=== PATIENT | female | born 1950 | race Caucasian/White ===

== ENCOUNTER 2019-07-06 07:05 | Day surgery (SDC) | payer MEDICARE, BC ==
[~2019-07-06 07:05] MED LIST: Lactated Ringers 1,000 ML IV SCH; Sodium Chloride 0.9% 10 ML Syringe FLUSH PRN
[2019-07-06] MEDS ORDERED: fentaNYL 100 MCG/2 ML SDV ONE (08:06)
[2019-07-06] MEDS ORDERED: Propofol 200 MG/20 ML SDV ONE ×2 (08:06→09:25)
--- NOTE | 2019-07-06 13:49 | OR ---
PRE-OPERATIVE DIAGNOSES: 1. History of colon polyps. Last colonoscopy 05/2014 revealed 2 adenomas. 2. Positive family history of advanced colon polyps requiring resection. 3. Chronic constipation. POST-OPERATIVE DIAGNOSES: 1. 2 mm polyp at 75 cm, removed with cold forceps. 2. Moderate left-sided diverticulosis. 3. Moderate hemorrhoids. 4. Mild melanosis coli. PROCEDURE: Colonoscopy with polypectomy x1 using cold forceps. ANESTHESIA: Monitored anesthesia care. BOWEL PREP: Good. DESCRIPTION OF PROCEDURE: Lisbet is a 68-year-old female who was brought to the endoscopy suite after discussing risks and benefits of the procedure. Informed consent was obtained for conscious sedation and colonoscopy with or without biopsy and/or polypectomy. We also discussed possibility of missed lesions. Pre-procedure exam was unremarkable. IV, oxygen, and monitors were placed. The patient was placed in the left lateral decubitus position. Sedation was administered and a digital rectal exam was performed and remarkable for some moderate hemorrhoids, not acutely inflamed. Colonoscope was passed into the rectum and slowly advanced all the way to the cecum. Cecum was viewed and photographed. The colonoscope was slowly withdrawn and the mucosa was closed observed in a direct circumferential manner. The ascending colon was unremarkable. The transverse colon revealed 2 mm polyp at 75 cm, removed with cold forceps. The descending and sigmoid colon revealed some moderate diverticulosis. Retroflexion was performed. Rectal mucosa was remarkable for some moderate hemorrhoids. Rectosigmoid area did also reveal some mild melanosis coli. Scope was removed. The patient tolerated the procedure well. The patient was monitored until that baseline status. Discharge instructions were reviewed and the patient was discharged in good condition. COMPLICATIONS: None. TOTAL TIME: 23 minutes. ESTIMATED BLOOD LOSS: Less than 1 mL. RECOMMENDATIONS/FOLLOW-UP: We will await results of path report to determine ideal followup interval. I would like to kindly thank Dr. Radha Scanlon for this referral. DMB: 07/06/2019 12:56:41 MODL: 07/06/2019 13:42:14 /[id number]
== END 2019-07-06 11:00 | disposition home or self-care (01) ==
LOC: VM.SDS 07:05
PROVIDERS: ATTEND Family Medicine
DX: D12.3 Benign neoplasm of transverse colon (principal); K57.30 Diverticulosis of large intestine without perforation or abscess without bleeding; K63.89 Other specified diseases of intestine; K64.9 Unspecified hemorrhoids; I10 Essential (primary) hypertension; E78.5 Hyperlipidemia, unspecified; E78.00 Pure hypercholesterolemia, unspecified; E03.9 Hypothyroidism, unspecified; E66.9 Obesity, unspecified; Z68.33 Body mass index [BMI] 33.0-33.9, adult; Z79.899 Other long term (current) drug therapy; Z86.010 Personal history of colon polyps; Z83.71 Family history of colonic polyps
CPT/HCPCS: 00811; 88305; J2704; J3010; J7120

== ENCOUNTER 2025-02-22 08:46 | Day surgery (SDC) | payer MEDICARE, BC ==
[2025-02-22] MEDS: Lactated Ringers 1,000 ML IV SCH (09:02)
[2025-02-22] MEDS ORDERED: Midazolam 1 MG/ML 2 ML SDV ONE (10:14)
[2025-02-22] MEDS ORDERED: Propofol 200 MG/20 ML SDV ONE (10:14)
[2025-02-22] MEDS ORDERED: fentaNYL 100 MCG/2 ML SDV ONE (10:25)
== END 2025-02-22 11:40 | disposition home or self-care (01) ==
LOC: VM.SDS 08:46
PROVIDERS: ATTEND Family Medicine
DX: D12.2 Benign neoplasm of ascending colon (principal); D12.3 Benign neoplasm of transverse colon; D12.5 Benign neoplasm of sigmoid colon; K57.30 Diverticulosis of large intestine without perforation or abscess without bleeding; K59.09 Other constipation; E78.00 Pure hypercholesterolemia, unspecified; E66.9 Obesity, unspecified; I10 Essential (primary) hypertension; E03.9 Hypothyroidism, unspecified; Z79.890 Hormone replacement therapy; Z79.899 Other long term (current) drug therapy; Z86.16 Personal history of COVID-19; Z68.25 Body mass index [BMI] 25.0-25.9, adult; Z86.0101 Personal history of adenomatous and serrated colon polyps
CPT/HCPCS: 00811; 88305; 99100; J2250; J2704; J3010; J7120